=== PATIENT | male | born 1990 | race Caucasian/White ===

== ENCOUNTER 2021-10-05 15:56 | Emergency (ER) | payer OTHER ==
[~2021-10-05] VITALS: Ht 193 cm; Wt 172.4 kg
[2021-10-05] MEDS ORDERED: TETRACAINE HCL 0.5% OPTH(EYE) SOLN 4ML LEFTEYE ONE (19:15)
[2021-10-05 20:29] VITALS: BP 146/90
== END 2021-10-05 20:31 | disposition home or self-care (01) ==
LOC: ER 15:56
DX: T15.92XA Foreign body on external eye, part unspecified, left eye, initial encounter (principal); X58.XXXA Exposure to other specified factors, initial encounter; Y93.89 Activity, other specified; Y92.89 Other specified places as the place of occurrence of the external cause; Y99.8 Other external cause status